=== PATIENT | male | born 1975 | race American Indian/Alaskan Native ===

== ENCOUNTER 2017-02-04 19:42 | Inpatient (IN) | payer MEDICARE ==
[2017-02-04] MEDS ORDERED: ATIVAN IM PRN (20:19)
[2017-02-04] MEDS ORDERED: HALDOL IM PRN (20:19)
--- NOTE | 2017-02-04 20:20 | Emergency Department Report ---
ED General Adult HPI - General Chief complaint: Overdose Stated complaint: POSS OD Time Seen by Provider: 02/04/17 20:10 Source: patient, family, EMS (ems notes not available at time of chart dictation), RN notes reviewed Mode of arrival: Stretcher Limitations: Altered Mental Status, Other (patient's schizophrenic, patient disorganized, patient poor historian) - History of Present Illness Initial comments: This is a 41-year-old male who was previously unknown to this provider. Has a past medical history of schizophrenia. Brought to the hospital by EMS with mother out of concern for overdose on cocaine and psychiatric medications; Prozac and/or Seroquel. Last known well time is unknown, however patient's mother reports that patient is ataxic and not walking with a steady gait. The patient cannot tell me when he was last well. The patient denies headache, neck pain, chest pain, abdominal pain, shortness of breath, homicidality and suicidality. Patient cannot describe exacerbating or relieving factors. -: unknown Consistency: constant Improves with: none Worsens with: none Associated Symptoms: confusion, weakness. denies: chest pain - Related Data Allergies Allergy/AdvReac Type Severity Reaction Status Date / Time No Known Allergies Allergy Verified 02/04/17 23:08 ED Review of Systems ROS: Stated complaint: POSS OD Other details as noted in HPI Comment: Unobtainable due to pts medical conditions Cardiovascular: denies: chest pain Gastrointestinal: denies: abdominal pain Neurological: abnormal gait Psychiatric: denies: homicidal thoughts, suicidal thoughts ED Past Medical Hx - Past Medical History Previous Medical History?: Yes Hx Psychiatric Treatment: Yes - Surgical History Past Surgical History?: No - Social History Smoking Status: Heavy Tobacco Smoker Substance Use Type: Alcohol ED Physical Exam - General Limitations: No Limitations General appearance: alert, in no apparent distress - Head Head exam: Present: atraumatic, normocephalic - Eye Eye exam: Present: normal appearance, PERRL, EOMI. Absent: nystagmus - ENT ENT exam: Present: normal exam, normal orophraynx, mucous membranes moist, normal external ear exam - Neck Neck exam: Present: normal inspection, full ROM - Respiratory Respiratory exam: Present: normal lung sounds bilaterally. Absent: respiratory distress - Cardiovascular Cardiovascular Exam: Present: regular rate, normal rhythm, normal heart sounds. Absent: systolic murmur, diastolic murmur, rubs, gallop - GI/Abdominal GI/Abdominal exam: Present: soft, normal bowel sounds. Absent: distended, tenderness, guarding, rebound, rigid, pulsatile mass - Rectal Rectal exam: Present: deferred - Extremities Exam Extremities exam: Present: normal inspection, full ROM. Absent: pedal edema, joint swelling, calf tenderness - Back Exam Back exam: Present: normal inspection, full ROM. Absent: tenderness, CVA tenderness (R), paraspinal tenderness - Neurological Exam Neurological exam: Present: alert, CN II-XII intact, abnormal gait, other ( Extraocular movements intact. Tongue midline. No facial droop. Facial sensation intact to light touch in the V1, V2, V3 distribution bilaterally. 5 and 5 strength in 4 extremities.. Sensation is intact to light touch in 4 extremities.). Absent: motor sensory deficit - Psychiatric Psychiatric exam: Present: flat affect. Absent: homicidal ideation - Skin Skin exam: Present: warm, dry, intact, normal color. Absent: rash ED Course Vital Signs 02/04/17 19:59 Temperature 98.7 F Pulse Rate 71 Respiratory 18 Rate Blood Pressure 118/61 O2 Sat by Pulse 98 Oximetry - Reevaluation(s) Reevaluation #1: 02/04/17 21:32 In addition, given that there is a concern that patient may have had a polysubstance overdose, including Seroquel, and on Prozac, he will require cardiac monitoring for at least 23 hours ED Medical Decision Making - Lab Data Result diagrams: 02/04/17 20:23 02/04/17 20:23 Vital Signs 02/04/17 19:59 Temperature 98.7 F Pulse Rate 71 Respiratory 18 Rate Blood Pressure 118/61 O2 Sat by Pulse 98 Oximetry Lab Results 02/04/17 02/04/17 02/04/17 Range/Units 20:23 20:23 20:23 WBC 8.9 (4.5-11.0) K/mm3 RBC 5.25 H (3.65-5.03) M/mm3 Hgb 15.9 H (11.8-15.2) gm/dl Hct 45.7 H (35.5-45.6) % MCV 87 (84-94) fl MCH 30 (28-32) pg MCHC 35 H (32-34) % RDW 13.0 L (13.2-15.2) % Plt Count 283 (140-440) K/mm3 Lymph % (Auto) 25.8 (13.4-35.0) % Clinch % (Auto) 6.5 (0.0-7.3) % Eos % (Auto) 4.1 (0.0-4.3) % Baso % (Auto) 0.4 (0.0-1.8) % Lymph # 2.3 (1.2-5.4) K/mm3 Clinch # 0.6 (0.0-0.8) K/mm3 Eos # 0.4 (0.0-0.4) K/mm3 Baso # 0.0 (0.0-0.1) K/mm3 Seg Neutrophils % 63.2 (40.0-70.0) % Seg Neutrophils # 5.6 (1.8-7.7) K/mm3 PT (12.2-14.9) Sec. INR (0.87-1.13) Sodium 139 (137-145) mmol/L Potassium 3.8 (3.6-5.0) mmol/L Chloride 98.1 (98-107) mmol/L Carbon Dioxide 27 (22-30) mmol/L Anion Gap 18 mmol/L BUN 15 (9-20) mg/dL Creatinine 1.1 (0.8-1.5) mg/dL Estimated GFR > 60 ml/min BUN/Creatinine Ratio 14 % Glucose 127 H (75-100) mg/dL Lactic Acid (0.7-2.0) mmol/L Calcium 10.3 H (8.4-10.2) mg/dL Magnesium (1.7-2.3) mg/dL Troponin T (0.00-0.029) ng/mL Salicylates (2.8-20.0) mg/dL Acetaminophen (10.0-30.0) ug/mL Plasma/Serum Alcohol < 0.01 (0-0.07) gm% 02/04/17 02/04/17 02/04/17 Range/Units 20:23 20:23 20:23 WBC (4.5-11.0) K/mm3 RBC (3.65-5.03) M/mm3 Hgb (11.8-15.2) gm/dl Hct (35.5-45.6) % MCV (84-94) fl MCH (28-32) pg MCHC (32-34) % RDW (13.2-15.2) % Plt Count (140-440) K/mm3 Lymph % (Auto) (13.4-35.0) % Clinch % (Auto) (0.0-7.3) % Eos % (Auto) (0.0-4.3) % Baso % (Auto) (0.0-1.8) % Lymph # (1.2-5.4) K/mm3 Clinch # (0.0-0.8) K/mm3 Eos # (0.0-0.4) K/mm3 Baso # (0.0-0.1) K/mm3 Seg Neutrophils % (40.0-70.0) % Seg Neutrophils # (1.8-7.7) K/mm3 PT (12.2-14.9) Sec. INR (0.87-1.13) Sodium (137-145) mmol/L Potassium (3.6-5.0) mmol/L Chloride (98-107) mmol/L Carbon Dioxide (22-30) mmol/L Anion Gap mmol/L BUN (9-20) mg/dL Creatinine (0.8-1.5) mg/dL Estimated GFR ml/min BUN/Creatinine Ratio % Glucose (75-100) mg/dL Lactic Acid (0.7-2.0) mmol/L Calcium (8.4-10.2) mg/dL Magnesium (1.7-2.3) mg/dL Troponin T < 0.010 (0.00-0.029) ng/mL Salicylates < 0.3 L (2.8-20.0) mg/dL Acetaminophen < 15.0 (10.0-30.0) ug/mL Plasma/Serum Alcohol (0-0.07) gm% 02/04/17 02/04/17 02/04/17 Range/Units 20:23 20:37 20:37 WBC (4.5-11.0) K/mm3 RBC (3.65-5.03) M/mm3 Hgb (11.8-15.2) gm/dl Hct (35.5-45.6) % MCV (84-94) fl MCH (28-32) pg MCHC (32-34) % RDW (13.2-15.2) % Plt Count (140-440) K/mm3 Lymph % (Auto) (13.4-35.0) % Clinch % (Auto) (0.0-7.3) % Eos % (Auto) (0.0-4.3) % Baso % (Auto) (0.0-1.8) % Lymph # (1.2-5.4) K/mm3 Clinch # (0.0-0.8) K/mm3 Eos # (0.0-0.4) K/mm3 Baso # (0.0-0.1) K/mm3 Seg Neutrophils % (40.0-70.0) % Seg Neutrophils # (1.8-7.7) K/mm3 PT 13.1 (12.2-14.9) Sec. INR 0.95 (0.87-1.13) Sodium (137-145) mmol/L Potassium (3.6-5.0) mmol/L Chloride (98-107) mmol/L Carbon Dioxide (22-30) mmol/L Anion Gap mmol/L BUN (9-20) mg/dL Creatinine (0.8-1.5) mg/dL Estimated GFR ml/min BUN/Creatinine Ratio % Glucose (75-100) mg/dL Lactic Acid 1.70 (0.7-2.0) mmol/L Calcium (8.4-10.2) mg/dL Magnesium 2.00 (1.7-2.3) mg/dL Troponin T (0.00-0.029) ng/mL Salicylates (2.8-20.0) mg/dL Acetaminophen (10.0-30.0) ug/mL Plasma/Serum Alcohol (0-0.07) gm% - EKG Data -: EKG Interpreted by Mn - EKG Data 02/04/17 21:30 Normal sinus, 74 bpm, QTC within normal limits, not morphologically consistent with ST elevation myocardial infarction - Radiology Data Radiology results: report reviewed, image reviewed CT scan of the cervical spine is negative. CT scan of the brain suggests possible subacute right-sided pontine infarct - Medical Decision Making Differential diagnosis, including but not limited to: Subacute stroke, cocaine overdose, polysubstance overdose, schizophrenia Assessment and plan: 41-year-old male with possible polysubstance overdose, and ataxia, last known well time is unknown, therefore he is not a TPA candidate. Patient placed on a 1013. Serum toxicology studies unremarkable. Creatinine kinase is pending. Noncontrast CT scan of the brain suggests possible right-sided subacute pontine infarct. Aspirin is ordered. Case was discussed with the [facility], the recommendations are as follows: Poison Control contacted. Spoke with Kathy. She states that patient needs to be monitored. No recomedations given. Patient getting ekg at this time. Case presented to the Hospital physician, Dr. Gay; he accepts the patient to the medical service. Critical care attestation.: If time is entered above; I have spent that time in minutes in the direct care of this critically ill patient, excluding procedure time. ED Disposition Clinical Impression: Overdose, Ataxia Disposition: DC-09 OP ADMIT IP TO THIS HOSP Is pt being admited?: Yes Does the pt Need Aspirin: Yes Condition: Good Referrals: PRIMARY CARE, [Primary Care Provider] - 3-5 Days
[2017-02-04 20:39] LABS: Basophils % (Auto) 0.4 % (0.0-1.8); Eosinophils % (Auto) 4.1 % (0.0-4.3); Hematocrit 45.7 % (35.5-45.6); Hemoglobin 15.9 gm/dl (11.8-15.2); Mean Corpuscular HGB Conc 35 % (32-34); Mean Corpuscular Hemoglobin 30 pg (28-32); Mean Corpuscular Volume 87 fl (84-94); Platelet Count 283 K/mm3 (140-440); Red Blood Count 5.25 M/mm3 (3.65-5.03); White Blood Count 8.9 K/mm3 (4.5-11.0)
[2017-02-04 20:55] LABS: Anion Gap 18 mmol/L; BUN/Creatinine Ratio 14; Blood Urea Nitrogen 15 mg/dL (9-20); Calcium 10.3 mg/dL (8.4-10.2); Carbon Dioxide 27 mmol/L (22-30); Chloride 98.1 mmol/L (98-107); Glucose 127 mg/dL (75-100); Potassium 3.8 mmol/L (3.6-5.0); Sodium 139 mmol/L (137-145)
--- NOTE | 2017-02-04 20:57 | Cat Scan Report ---
FINAL REPORT PROCEDURE: CT HEAD/BRAIN WO CON TECHNIQUE: Computerized tomography of the head was performed without contrast material. HISTORY: ataxia od COMPARISON: No prior studies are available for comparison. FINDINGS: Skull and scalp: Normal. Paranasal sinuses: Normal. Ventricles and subarachnoid spaces: Normal. Cerebrum: No evidence of hemorrhage, acute infarction or mass . Cerebellum and brainstem: An ill-defined hypodense a area is noted in the vivian on the right side measuring 7 millimeters x 5 millimeters. There is no evidence of any acute hemorrhage.. Vasculature: Normal. Comments: None. IMPRESSION: Small ill-defined hypodense area of vivian may represent an artifact versus a subacute or chronic infarct. MRI with diffusion-weighted imaging is recommended for further evaluation. No acute intracranial hemorrhage.
[2017-02-04 21:01] LABS: INR 0.95 (0.87-1.13)
--- NOTE | 2017-02-04 21:06 | Cat Scan Report ---
FINAL REPORT PROCEDURE: CT CERVICAL SPINE WO CON TECHNIQUE: Computerized tomography of the cervical spine was performed from the skull base to T1 without contrast material. HISTORY: ataxia od COMPARISON: No prior studies are available for comparison. FINDINGS: There is loss of cervical lordosis. Vertebral height is within normal limits. An acute fracture is not identified. C1-2: No significant abnormality. C2-3: No significant abnormality. C3-4: Mild degree broad-based disc bulging is noted without significant spinal canal or neural foraminal compromise.. C4-5: Mild degree broad-based disc bulging is noted without significant spinal canal or neural foraminal compromise.. C5-6: No significant abnormality. C6-7: No significant abnormality. C7-T1: No significant abnormality. Other: No additional findings. IMPRESSION: No significant spinal canal or neural foraminal compromise. No acute fracture. Straightening of the cervical spine is most likely secondary to spasm or positioning..
[2017-02-04] MEDS ORDERED: BABY ASPIRIN PO ONE (21:33)
[2017-02-04] MEDS ORDERED: NACL 0.9% 1000 ML 2,000 ML IV ONE (21:46)
[2017-02-04 21:59] LABS: Bilirubin,Urine NEG (Negative); Blood,Urine NEG (Negative); Ketones,Urine NEG (Negative); Leukocyte Esterase,Urine LG (Negative); Mucus,Urine 1+ /HPF; Nitrite,Urine NEG (Negative); Urobilinogen,Urine < 2.0 mg/dL (<2.0)
[2017-02-04 22:00] LABS: WBC,Urine > 182.0 /HPF (0.0-6.0)
[2017-02-04] MEDS ORDERED: SODIUM CHLORIDE FLUSH SYRINGE 10 ML IV PRN (22:32)
[2017-02-05 01:06] LABS: Creatine Kinase MB 1.1 ng/mL (0.0-4.0)
[2017-02-05 01:07] LABS: Creatine Kinase 108 units/L (55-170)
[2017-02-05 06:16] LABS: Urine Drugs of Abuse Note Disclamer
[2017-02-05 06:33] LABS: Creatine Kinase MB 1.1 ng/mL (0.0-4.0)
[2017-02-05 06:43] LABS: Creatine Kinase 107 units/L (55-170)
--- NOTE | 2017-02-05 06:52 | History and Physical Report ---
CHIEF COMPLAINT: Possible drug overdose with cocaine, Seroquel, and probably Prozac. HISTORY OF PRESENT ILLNESS: The patient is a 41-year-old male who presented to the Emergency Room with the mother being concerned that the patient overdosed on cocaine and his psychiatric meds that includes Seroquel and Prozac. The mother says she could not remember when the patient started feeling okay, but noted that the patient has been unable to ambulate because of unsteady gait and the patient stood up and fell down hitting his head on the ground. Mother and the patient could not tell when the patient felt well last, there was no history of chest pain, no history of neck pain, no history of shortness of breath, or headache. Also, there was no history of suicidal intentions or homicidal intention. PAST MEDICAL HISTORY: Pertinent for schizophrenia. PAST SURGICAL HISTORY: Unremarkable. FAMILY HISTORY: Noncontributory. SOCIAL HISTORY: The patient smokes cigarettes, drinks alcohol, uses illicit drugs notably cocaine. MEDICATIONS: The patient is on Seroquel, dose and frequency unknown. Prozac, dose and frequency unknown. ALLERGIES: There are no known drug allergies. REVIEW OF SYSTEMS: CONSTITUTIONAL: There is no fever, no chills, no diaphoresis. HEENT: There is no headache or sore throat. CARDIOVASCULAR SYSTEM: There is no chest pain or orthopnea. RESPIRATORY SYSTEM: There is no shortness of breath or cough. GASTROINTESTINAL SYSTEM: There is no nausea, no vomiting, no abdominal pain, diarrhea or constipation. NEUROLOGICAL SYSTEM: Ataxia, unsteady gait noted. No change in mental status. No dizziness, numbness. MUSCULOSKELETAL SYSTEM: There is no joint pain or swelling. DERMATOLOGICAL SYSTEM: There is no skin rash or itching. GENITOURINARY SYSTEM: There is no dysuria, hematuria, or flank pain. Rest of system review is normal. PHYSICAL EXAMINATION: GENERAL: At the time of exam, the patient was found to be alert, oriented x 3 and not in acute distress. VITAL SIGNS: Shows temperature of 98.8 degrees Fahrenheit, pulse of 78, respiration 11, blood pressure 117/63, O2 sat of 97% on room air. HEENT: Showed pupils to be equal, round, reactive to light and accommodation. Extraocular muscles are intact. NECK: Supple with no JVD or carotid bruit. CARDIOVASCULAR SYSTEM: Show first and second heart sounds with no gallops or murmurs. RESPIRATORY SYSTEM: Show good air entry on both sides of the lung with no abnormal breath sounds. GASTROINTESTINAL SYSTEM: Show abdomen to be full, soft, nontender with no organomegaly or rigidity. NEUROLOGICAL: Shows no focal deficit. MUSCULOSKELETAL SYSTEM: Show no joint swelling or tenderness. DERMATOLOGICAL SYSTEM: Show bruises on the forehead, but no other skin rash. GENITOURINARY SYSTEM: Show no costovertebral angle tenderness. PERTINENT LABORATORY DATA AND IMAGING STUDIES: The patient has CBC done with normal white count, elevated hemoglobin of 15.9 and elevated hematocrit of 45.7 with normal MCV. CBC differential was unremarkable. Coagulation studies came back unremarkable. The patient's chemistry shows slightly elevated calcium level of 10.3 and elevated glucose level of 127. Cardiac enzymes show normal CK-MB and normal total CPK with normal 2 sets of troponin. The patient's urinalysis show elevated urine wbc's of greater than 182 with large leukoesterase as well as elevated urine epithelial cells. Blood toxicology screen shows unremarkable salicylate level, unremarkable acetaminophen level, and low alcohol level of 0.01. IMAGING STUDIES: The patient has CT of the cervical spine done that shows no significant abnormality in the spinal canal or neural foramina and there is no acute fracture. Also the patient has CT of the head done that shows small ill-defined hypodense area of bones that may represent an artifact, or subacute or chronic infarct. MRI with diffuse weighted imaging is recommended for further evaluation and no acute intracranial hemorrhage was found. DIAGNOSES: 1. Subcute cerebral infarct. 2. Drug overdose with cocaine, Seroquel and possible Prozac. PLAN: The patient will be admitted to ICU because of drug overdose and will continue involuntary confinement that was already put on the patient by the Emergency Room. The patient will have complete echocardiogram done in the morning and will have MRI of the brain without contrast done this morning as well as MRI/MRA of the head without contrast. The patient will also have bilateral carotid Doppler done and DVT prophylaxis will be through sequential compressive device. The patient will continue mental health consult put in by the Emergency Room as well as continue Neurology consult with Dr. Teague that was ordered by the Emergency Room. The patient will also have physical therapy evaluation and treatment as well as occupational therapy and speech therapy evaluation and treatment this morning and will remain n.p.o. until he passes swallow test. The patient will be on oxygen by nasal cannula at 2 liter per minute and will have bilateral carotid Doppler also done this morning. The patient will have aspiration precaution and blood pressure monitoring and will have his drug reconciled later and applied accordingly. JOB# [id number] OCN/NTS MTDD
--- NOTE | 2017-02-05 11:41 | Consultation ---
History of Present Illness - Reason for Consult Consult date: 02/05/17 Possible Overdose, cardiac monitoring Requesting physician: RADHA VICTOR - History of Present Illness 41 y/o male, brought to ED by mother as she was concern for overdose. Patient UDS was positive for cocaine and methadone. Hemodynamically stable and awake enough to protect his airway. EKG done in ED, not documented by [facility] physician but QTc is ok. This am awake and alert. Past History Past Medical History: other (psych history, polysubstance abuse) Social history: prescription drug abuse Family history: no significant family history Medications and Allergies Allergies Allergy/AdvReac Type Severity Reaction Status Date / Time No Known Allergies Allergy Verified 02/04/17 23:08 Active Meds: Active Medications Haloperidol Lactate (Haldol) 5 mg IM Q6HR PRN PRN Reason: Agitation Lorazepam (Ativan) 2 mg IM Q4HR PRN PRN Reason: Agitation Sodium Chloride (Sodium Chloride Flush Syringe 10 Ml) 10 ml IV PRN PRN PRN Reason: LINE FLUSH Review of Systems All systems: negative Exam - Constitutional Vitals: Temp Pulse Resp BP Pulse Ox 98.8 F 74 13 134/80 97 02/05/17 03:45 02/05/17 10:00 02/05/17 10:00 02/05/17 06:00 02/05/17 08:12 General appearance: Present: no acute distress - EENT Eyes: Present: PERRL, EOM intact ENT: hearing intact - Neck Neck: Present: supple - Respiratory Respiratory effort: normal Respiratory: bilateral: CTA - Cardiovascular Rhythm: regular Heart Sounds: Present: S1 & S2 - Extremities Extremities: no ischemia - Abdominal General gastrointestinal: Present: soft, non-tender, normal bowel sounds Results - Labs CBC & Chem 7: 02/04/17 20:23 02/04/17 20:23 Labs: Abnormal lab results 02/04/17 02/04/17 02/04/17 Range/Units 20:23 20:23 20:23 RBC 5.25 H (3.65-5.03) M/mm3 Hgb 15.9 H (11.8-15.2) gm/dl Hct 45.7 H (35.5-45.6) % MCHC 35 H (32-34) % RDW 13.0 L (13.2-15.2) % Glucose 127 H (75-100) mg/dL Calcium 10.3 H (8.4-10.2) mg/dL Triglycerides (2-149) mg/dL Cholesterol (50-199) mg/dL Urine WBC (Auto) (0.0-6.0) /HPF U Epithel Cells (Auto) (0-13.0) /HPF Salicylates < 0.3 L (2.8-20.0) mg/dL 02/04/17 02/05/17 Range/Units 21:29 03:42 RBC (3.65-5.03) M/mm3 Hgb (11.8-15.2) gm/dl Hct (35.5-45.6) % MCHC (32-34) % RDW (13.2-15.2) % Glucose (75-100) mg/dL Calcium (8.4-10.2) mg/dL Triglycerides 177 H (2-149) mg/dL Cholesterol 203 H (50-199) mg/dL Urine WBC (Auto) > 182.0 H (0.0-6.0) /HPF U Epithel Cells (Auto) 27.0 H (0-13.0) /HPF Salicylates (2.8-20.0) mg/dL - Imaging and Cardiology CT Scan - head: report reviewed Assessment and Plan 41 y/o male with schizophrenia, admitted with possible suicide attempt and concern for overdose with methadone and cocaine 1. Cardiac arthur stable. could have gone to telemetry after EKG was done and showed no acute abnormality. Not sure why IMS felt that patient needed ICU status. 2. patient made 1013 in ED. Will need psych eval and sitter 3. No further indication for ICU, please transfer to floor. Will sign off once out of ICU.
--- NOTE | 2017-02-05 14:08 | Progress Note ---
Assessment and Plan Acute toxis encephalopathy - likely from drug overdose, now at baseline - cont to monitor Abnormal CT head for possible subacute stroke - CVa work up, start on aspirin statin - neuro consulted Drug overdose - eval for intentional overdose - psych consulted h/o paranois schizophrenia - follow psych recommendation UTI - will start on levaquin DVt Px - lovenox Brief history: Has a past medical history of schizophrenia. Brought to the hospital by EMS with mother out of concern for overdose on cocaine and psychiatric medications; Prozac and/or Seroquel Radiological test: CT head Cervical spine CT Carotid doppler Hospitalist Physical exam: GENERAL: well-developed and well-nourished AAM lying on bed appeared to be in no discomfort. HEENT: Normocephalic. Atraumatic. No conjunctival congestion or icterus. Patient has moist mucous membranes. NECK: Supple. Trachea midline. CHEST/LUNGS: Clear to auscultated bilaterally, breathing nonlabored. No wheezes crackles or rhonchi. HEART/CARDIOVASCULAR: Regular in rate and rhythm. S1 and S2 positive. ABDOMEN: Abdomen is soft, nontender. Patient has normal bowel sounds. SKIN: There is no rash. Warm and dry. NEURO: No focal motor deficit. Follows command. MUSCULOSKELETAL: No joint effusion or tenderness. EXTRIMITY: No edema, no cyanosis or clubbing. PSYCH: Cooperative. Subjective Date of service: 02/05/17 Interval history: pt sen and examined denies any SI he states that he wanted to have good sleep and took seroquel and haldol together and passed out Objective - Constitutional Vitals: Vital Signs - 12hr 02/05/17 02/05/17 02/05/17 02:10 02:15 02:20 Temperature Pulse Rate 78 78 Respiratory 13 11 L Rate Respiratory Rate [Left Ankle] Blood Pressure 129/74 129/74 O2 Sat by Pulse 98 97 97 Oximetry 02/05/17 02/05/17 02/05/17 02:30 02:40 02:50 Temperature Pulse Rate 86 86 82 Respiratory 13 18 13 Rate Respiratory Rate [Left Ankle] Blood Pressure 129/74 129/74 129/74 O2 Sat by Pulse 96 96 96 Oximetry 02/05/17 02/05/17 02/05/17 03:00 03:10 03:15 Temperature Pulse Rate 82 82 82 Respiratory 12 12 Rate Respiratory Rate [Left Ankle] Blood Pressure 117/63 117/63 O2 Sat by Pulse 94 95 Oximetry 02/05/17 02/05/17 02/05/17 03:20 03:30 03:40 Temperature Pulse Rate 79 77 78 Respiratory 12 12 11 L Rate Respiratory Rate [Left Ankle] Blood Pressure 117/63 117/63 117/63 O2 Sat by Pulse 96 96 97 Oximetry 02/05/17 02/05/17 02/05/17 03:45 03:50 04:00 Temperature 98.8 F Pulse Rate 76 71 Respiratory 10 L 13 Rate Respiratory Rate [Left Ankle] Blood Pressure 117/63 119/70 O2 Sat by Pulse 98 96 Oximetry 02/05/17 02/05/17 02/05/17 04:10 04:20 04:30 Temperature Pulse Rate 73 78 76 Respiratory 12 12 11 L Rate Respiratory Rate [Left Ankle] Blood Pressure 119/70 119/70 119/70 O2 Sat by Pulse 97 97 96 Oximetry 02/05/17 02/05/17 02/05/17 04:40 04:50 05:00 Temperature Pulse Rate 80 77 74 Respiratory 14 12 12 Rate Respiratory Rate [Left Ankle] Blood Pressure 119/70 119/70 120/67 O2 Sat by Pulse 97 97 95 Oximetry 02/05/17 02/05/17 02/05/17 05:10 05:20 05:30 Temperature Pulse Rate 89 76 75 Respiratory 16 13 12 Rate Respiratory Rate [Left Ankle] Blood Pressure 120/67 120/67 120/67 O2 Sat by Pulse 98 97 96 Oximetry 02/05/17 02/05/17 02/05/17 05:40 05:50 06:00 Temperature Pulse Rate 75 77 74 Respiratory 14 14 13 Rate Respiratory Rate [Left Ankle] Blood Pressure 120/67 120/67 134/80 O2 Sat by Pulse 98 95 93 Oximetry 02/05/17 02/05/17 02/05/17 08:00 08:12 10:00 Temperature Pulse Rate 74 Respiratory Rate Respiratory 13 Rate [Left Ankle] Blood Pressure O2 Sat by Pulse 97 97 Oximetry - Labs CBC & Chem 7: 02/04/17 20:23 02/04/17 20:23 Labs: Abnormal lab results 02/04/17 02/04/17 02/04/17 Range/Units 20:23 20:23 20:23 RBC 5.25 H (3.65-5.03) M/mm3 Hgb 15.9 H (11.8-15.2) gm/dl Hct 45.7 H (35.5-45.6) % MCHC 35 H (32-34) % RDW 13.0 L (13.2-15.2) % Glucose 127 H (75-100) mg/dL POC Glucose (70-105) Calcium 10.3 H (8.4-10.2) mg/dL Triglycerides (2-149) mg/dL Cholesterol (50-199) mg/dL Urine WBC (Auto) (0.0-6.0) /HPF U Epithel Cells (Auto) (0-13.0) /HPF Salicylates < 0.3 L (2.8-20.0) mg/dL 02/04/17 02/05/17 02/05/17 Range/Units 21:29 03:42 11:40 RBC (3.65-5.03) M/mm3 Hgb (11.8-15.2) gm/dl Hct (35.5-45.6) % MCHC (32-34) % RDW (13.2-15.2) % Glucose (75-100) mg/dL POC Glucose 119 H (70-105) Calcium (8.4-10.2) mg/dL Triglycerides 177 H (2-149) mg/dL Cholesterol 203 H (50-199) mg/dL Urine WBC (Auto) > 182.0 H (0.0-6.0) /HPF U Epithel Cells (Auto) 27.0 H (0-13.0) /HPF Salicylates (2.8-20.0) mg/dL
--- NOTE | 2017-02-05 16:17 | Consultation ---
History of Present Illness Consult date: 02/05/17 History of present illness: tarun has hx of paranoid schizophrenia PMH of being treated at [facility] and was given geodon and seroquel he mixed it with crack cocaine and passed out suspect seizure plan EEG neuro stable at present Thanks will follow Past History Past Medical History: other (psych history, polysubstance abuse) Social history: prescription drug abuse Family history: no significant family history Medications and Allergies Allergies Allergy/AdvReac Type Severity Reaction Status Date / Time No Known Allergies Allergy Verified 02/04/17 23:08 Home Medications Medication Instructions Recorded Confirmed Last Taken Type FLUoxetine 40 mg PO DAILY 02/05/17 02/05/17 Unknown History Haloperidol 1 tab PO QHS 02/05/17 02/05/17 Unknown History Pantoprazole 40 mg PO DAILY 02/05/17 02/05/17 Unknown History SEROquel 600 mg PO QHS 02/05/17 02/05/17 02/04/17 History 800 VENTOLIN Inhaler(NF) 02/05/17 Unknown History Active Meds: Active Medications Aspirin (Halfprin Ec) 81 mg PO QDAY AJAY Atorvastatin Calcium (Lipitor) 80 mg PO QHS AJAY Enoxaparin Sodium (Lovenox) 40 mg SUB-Q QDAY@2200 AJAY Haloperidol Lactate (Haldol) 5 mg IM Q6HR PRN PRN Reason: Agitation Lorazepam (Ativan) 2 mg IM Q4HR PRN PRN Reason: Agitation Sodium Chloride (Sodium Chloride Flush Syringe 10 Ml) 10 ml IV PRN PRN PRN Reason: LINE FLUSH Physical Examination - Vital Signs Vital Signs: Vital Signs Resp 13 02/04/17 19:53 Results - Laboratory Findings CBC and BMP: 02/04/17 20:23 02/04/17 20:23 Abnormal Lab Findings: Abnormal Labs 02/04/17 02/04/17 02/04/17 20:23 20:23 20:23 RBC 5.25 H Hgb 15.9 H Hct 45.7 H MCHC 35 H RDW 13.0 L Glucose 127 H POC Glucose Calcium 10.3 H Triglycerides Cholesterol Urine WBC (Auto) U Epithel Cells (Auto) Salicylates < 0.3 L 02/04/17 02/05/17 02/05/17 21:29 03:42 11:40 RBC Hgb Hct MCHC RDW Glucose POC Glucose 119 H Calcium Triglycerides 177 H Cholesterol 203 H Urine WBC (Auto) > 182.0 H U Epithel Cells (Auto) 27.0 H Salicylates
--- NOTE | 2017-02-05 17:58 | Consultation ---
History of Present Illness - Reason for Consult Consult date: 02/05/17 Reason for consult: psychiatric evaluation - Chief Complaint Chief complaint: "I took seroquel and haldol together and passed out." Mr. Valente is a 41 year old AAM seen for psychiatric evaluation on the medication floor. He reports using cocaine for 2 days, staying awake, not eating or drinking anything, and then taking seroquel 800mg and haldol 10mg. He states after he took the medication he must have passed out. His mother found him and called 911. He reports ongoing cocaine use, at least 1 x weekly if not more. He reports alcohol use in "small" amounts. His UDS is positive for methadone and cocaine. CK is 107. Head CT showed subacute or chronic infarct. He has a history of schizophrenia, paranoid type. He adamantly denies suicide attempt. He states he did not overdose. He thinks his episode was because of the combination of the conditions described. He reports using cocaine for 2 days, staying awake, not eating or drinking anything , and then taking seroquel 800mg and haldol 10mg. He reports a good appetite now. He states he wants to continue with his mental health treatment, of Seroquel 800mg hs, haldol at a reduced dose of 5mg, and prozac 40mg daily. Psychotic symptoms are controlled by medications. He has chronic paranoia and auditory hallucinations worsen with cocaine use. He denies command hallucinations. No homicidal ideation. Medications and Allergies Allergies Allergy/AdvReac Type Severity Reaction Status Date / Time No Known Allergies Allergy Verified 02/04/17 23:08 Home Medications Medication Instructions Recorded Confirmed Last Taken Type FLUoxetine 40 mg PO DAILY 02/05/17 02/05/17 Unknown History Haloperidol 1 tab PO QHS 02/05/17 02/05/17 Unknown History Pantoprazole 40 mg PO DAILY 02/05/17 02/05/17 Unknown History SEROquel 600 mg PO QHS 02/05/17 02/05/17 02/04/17 History 800 VENTOLIN Inhaler(NF) 02/05/17 Unknown History Active Meds: Active Medications Aspirin (Halfprin Ec) 81 mg PO QDAY AJAY Atorvastatin Calcium (Lipitor) 80 mg PO QHS AJAY Enoxaparin Sodium (Lovenox) 40 mg SUB-Q QDAY@2200 AJAY Haloperidol Lactate (Haldol) 5 mg IM Q6HR PRN PRN Reason: Agitation Lorazepam (Ativan) 2 mg IM Q4HR PRN PRN Reason: Agitation Sodium Chloride (Sodium Chloride Flush Syringe 10 Ml) 10 ml IV PRN PRN PRN Reason: LINE FLUSH Past psychiatric history - Past Medical History Past Medical History: other - past Psychiatric treatment and history Psych: Schizophrenia - Social History Social history: lives with family (lives with mother), other (cocaine use) Mental Status Exam - Vital signs Last Vital Signs Temp 98.5 F 02/05/17 15:17 Pulse 75 02/05/17 15:17 Resp 18 02/05/17 15:17 BP 106/69 02/05/17 15:17 Pulse Ox 96 02/05/17 15:17 - Exam Orientation: time, place, person Affect: normal Mood: appropriate, calm Thought content: paranoia (chronic) Thought Process: Intact Perceptions: none Speech: normal rate and pattern Concentration: focused Motor activity: normal Level of consciousness: alert Memory: Intact Sleep Symptoms: Difficulty Falling Asleep Appetite: increased Interaction: cooperative Results Result Diagrams: 02/04/17 20:23 02/04/17 20:23 Abnormal lab results 02/04/17 02/04/17 02/04/17 Range/Units 20:23 20:23 20:23 RBC 5.25 H (3.65-5.03) M/mm3 Hgb 15.9 H (11.8-15.2) gm/dl Hct 45.7 H (35.5-45.6) % MCHC 35 H (32-34) % RDW 13.0 L (13.2-15.2) % Glucose 127 H (75-100) mg/dL POC Glucose (70-105) Calcium 10.3 H (8.4-10.2) mg/dL Triglycerides (2-149) mg/dL Cholesterol (50-199) mg/dL Urine WBC (Auto) (0.0-6.0) /HPF U Epithel Cells (Auto) (0-13.0) /HPF Salicylates < 0.3 L (2.8-20.0) mg/dL 02/04/17 02/05/17 02/05/17 Range/Units 21:29 03:42 11:40 RBC (3.65-5.03) M/mm3 Hgb (11.8-15.2) gm/dl Hct (35.5-45.6) % MCHC (32-34) % RDW (13.2-15.2) % Glucose (75-100) mg/dL POC Glucose 119 H (70-105) Calcium (8.4-10.2) mg/dL Triglycerides 177 H (2-149) mg/dL Cholesterol 203 H (50-199) mg/dL Urine WBC (Auto) > 182.0 H (0.0-6.0) /HPF U Epithel Cells (Auto) 27.0 H (0-13.0) /HPF Salicylates (2.8-20.0) mg/dL All other labs normal. Assessment and Plan Assessment and plan: Impression: He presented to the hospital with altered mental status. Cocaine overdose, seroquel & haldol ingestion. schizophrenia, paranoia type by history. r/o intentional overdose ddx: substance induced psychotic disorder. Neurology involved. Recommendation: Hold psychotropic medications at this time. Assess again in 24 hours to determine need for involuntary hold and to evaluate psychotropic medications.
[2017-02-05] MEDS: HALFPRIN EC PO SCH (18:00)
[2017-02-05] MEDS ORDERED: LOVENOX SUB-Q SCH (22:00)
[2017-02-06] MEDS: HALFPRIN EC PO SCH (09:55)
[2017-02-06] MEDS ORDERED: LEVAQUIN PO SCH (10:00)
--- NOTE | 2017-02-06 13:43 | Progress Note ---
Subjective - Reason for Consult Consult date: 02/06/17 Reason for consult: Psychiatry Follow-up - Chief Complaint Chief complaint: "Drug use is my issue" Mr. Valente is a 41 year old AAM seen for psychiatric evaluation on the medication floor. Today patient is calm and cooperative during the assessment. Per collateral from his mother Celsa Valente who was at the bedside, stated that her son has always had an issue with cocaine use. She stated that he was "clean " for 2 years and had no problems. She stated once he started back using cocaine , the hallucinations/paranoia started again. She denies that her son was trying to kill himself prior to his admission to the hospital. She denies a prior suicidal attempt by her son. The patient confirmed being "fine" when he wasn't using cocaine for 2 years. He denied hallucinations and paranoia during that time. He denies SI/HI's and AVH's. He stated that he took a regular dose of his medications (2 Seroquel pills and 1 Haldol pill) prior to being admitted to [facility]. He stated that he slept "well" last night. He stated that he will follow- up with his outpatient psychiatrist and get an second opinion about his mental health dx. Mental Status Exam - Vital signs Last Vital Signs Temp 97.6 F 02/06/17 09:58 Pulse 89 02/06/17 10:00 Resp 18 02/06/17 10:00 BP 153/94 02/06/17 09:58 Pulse Ox 97 02/06/17 09:58 - Exam Narrative exam: MSE: Appearance: calm, cooperative Behavior: regular eye contact Speech: regular rate and tone Mood: "well" Affect: congruent to mood Thought Process: intact Thought Content: denies SI/HI's and AVH's Motor Activity: sitting up in bed Cognition: A/O x3 Insight: fair Judgment: fair Assessment and Plan Impression: Schizophrenia, paranoia type by history. Substance Use DO (cocaine) . Today patient is calm and cooperative during the assessment. Unintentional overdose. Neuro following patient - Abnormal CT of the head. DDx: Substance Induced Psychosis Recommendation/Plan: Rescind 1013. Recommend patient follow up with his outpatient psychiatrist to be reevaluated. Patient was given outpatient psy/ rehab services for [facility]. Discussed the importance to abstain from recreational drug use with patient.
--- NOTE | 2017-02-06 15:25 | Discharge Summary ---
Providers - Providers Date of Admission: 02/04/17 22:31 Date of discharge: 02/06/17 Attending physician: BRODY GAVIN 02/04/17 20:19 Consult to Mental Health [CONS] Urgent Reason For Exam: psych Place consult to:: mechanical service representative front services agent Notified:: awaiting call back 02/04/17 21:29 Consult to Physician [CONS] Urgent Consulting Provider: MARKIE MONTANA Reason For Exam: ataxia Notified:: awaiting call back 02/04/17 22:44 Occupational Therapy Evaluate and Treat [CONS] Routine Comment: Reason For Exam: Neuro deficits Physical Therapy Evaluation and Treat [CONS] Routine Comment: Reason For Exam: Neuro deficits 02/04/17 23:15 Consult to Physician [CONS] Routine Consulting Provider: HEIDI BENDER Reason For Exam: icu admission Place consult to:: Dr. Bender Notified:: Answering Service Phone number called:: [phone] Was contact made?: Yes If yes, spoke with:: Dr. Bender Time called:: 23:22 02/05/17 06:46 Speech Therapy Evaluation and Treat [CONS] Routine Reason For Exam: swallow eval 02/05/17 06:52 Physical Therapy Evaluation and Treat [CONS] Routine Comment: Reason For Exam: ATAXIA DUE TO CEREBRAL INFARCT Primary care physician: WET END SUPERVISOR Hospitalization Condition: Good Hospital course: This is a 41 y/o male with history of schizophrenia Brought to the hospital by EMS with mother out of concern for overdose on cocaine and psychiatric medications; haldol and Seroquel. He denied SI/HI's and AVH's. He stated that he took a regular dose of his medications (2 Seroquel pills and 1 Haldol pill) prior to being admitted to [facility]. He stated that he has been sleeping "well" at night in the hospital. He stated that he will follow-up with his outpatient psychiatrist and get an second opinion about his mental health dx. Psych was consulted and recommended outpatient follow up. His CT head in the ER had abnormal findings and neurology was consulted. CVA work up was done and no ischemic infract noted in the MRI. He was discharged home instable condition. Discharge diagnosis and management: Acute toxis encephalopathy - likely from drug overdose, now at baseline - cont to monitor Abnormal CT head for possible subacute stroke - had CVa work up, started on aspirin statin - neuro consulted, but mostly it was an artifact Drug overdose - eval for intentional overdose - psych consulted and recommended outpt follow up h/o paranois schizophrenia - cont home meds except haldol at bedtime, further Mx outpt UTI - treated with levaquin DVt Px - lovenox Radiological test: CT head Cervical spine CT Carotid doppler MRI brain 2d echo Hospitalist Physical exam: GENERAL: well-developed and well-nourished AAM lying on bed appeared to be in no discomfort. HEENT: Normocephalic. Atraumatic. No conjunctival congestion or icterus. Patient has moist mucous membranes. NECK: Supple. Trachea midline. CHEST/LUNGS: Clear to auscultated bilaterally, breathing nonlabored. No wheezes crackles or rhonchi. HEART/CARDIOVASCULAR: Regular in rate and rhythm. S1 and S2 positive. ABDOMEN: Abdomen is soft, nontender. Patient has normal bowel sounds. SKIN: There is no rash. Warm and dry. NEURO: No focal motor deficit. Follows command. MUSCULOSKELETAL: No joint effusion or tenderness. EXTRIMITY: No edema, no cyanosis or clubbing. PSYCH: Cooperative. Disposition: DC-01 TO HOME OR SELFCARE Time spent for discharge: 32 minutes Core Measure Documentation - Palliative Care Palliative Care/ Comfort Measures: Not Applicable - Core Measures Any of the following diagnoses?: none Exam - Constitutional Vitals: Temp Pulse Resp BP Pulse Ox 97.6 F 89 18 153/94 97 02/06/17 09:58 02/06/17 10:00 02/06/17 10:00 02/06/17 09:58 02/06/17 09:58 Plan Activity: advance as tolerated Weight Bearing Status: Weight Bear as Tolerated Diet: low fat, low salt Follow up with: PRIMARY CARE, [Primary Care Provider] - 3-5 Days Prescriptions: Levofloxacin [Levaquin TAB] 500 mg PO Q24HR #3 tablet
[2017-02-06 16:20] VITALS: BP 129/83
--- NOTE | 2017-02-07 07:39 | Magnetic Resonance Report ---
MRI OF THE BRAIN WITHOUT CONTRAST: HISTORY: CVA PROCEDURE: Multiplanar, multisequence MR imaging of the brain without IV contrast was performed. FINDINGS: CT head without contrast performed 02/04/17 was reviewed. The brain parenchyma signal intensity and its jaramillo white interface are within normal limits on all sequences. No evidence for acute ischemia, hemorrhage or mass. No chronic infarct or extra-axial fluid collection. The midline structures are central. The basal cisterns are patent. Normal ventricular size. The orbital cavities and sella turcica demonstrate no abnormality. The visualized paranasal sinuses and mastoid air cells are well aerated. IMPRESSION: Unremarkable non-enhanced MRI of the brain.
== END 2017-02-06 20:21 | disposition home or self-care (01) | DRG 917 ==
LOC: ED 19:42 → CC1 22:31 → 4A 02-05 15:31
PROVIDERS: ADMIT Internal Medicine; ATTEND Internal Medicine
DX: T40.5X2A Poisoning by cocaine, intentional self-harm, initial encounter (principal); G92 Toxic encephalopathy; I63.9 Cerebral infarction, unspecified; N39.0 Urinary tract infection, site not specified; F20.0 Paranoid schizophrenia; R27.0 Ataxia, unspecified; F17.200 Nicotine dependence, unspecified, uncomplicated; T43.222A Poisoning by selective serotonin reuptake inhibitors, intentional self-harm, initial encounter; T43.592A Poisoning by other antipsychotics and neuroleptics, intentional self-harm, initial encounter; Y92.89 Other specified places as the place of occurrence of the external cause
CPT/HCPCS: 36415; 70450; 70551; 72125; 80048; 80061; 80307; 80320; 81001; 82140; 82550; 82553; 82962; 83735; 84484; 85025; 85610; 87086; 93005; 93010; 93306; 93880; 96360; 99406; A9270-GY; G0480; G8996-GN; G8997-GN; J1630; J1650; J2060; J7030

== ENCOUNTER 2017-07-26 11:23 | Emergency (ER) | payer MEDICARE | END 2017-07-26 12:00 | disposition left against medical advice (07) | LOC: ED 11:23 | DX: F99 Mental disorder, not otherwise specified (principal); Z53.21 Procedure and treatment not carried out due to patient leaving prior to being seen by health care provider ==

== ENCOUNTER 2021-07-02 20:16 | Emergency (ER) | payer MEDICARE ==
--- NOTE | 2021-07-02 20:27 | Emergency Department Report ---
ED CPR HPI - General Stated Complaint: CARDIAC ARREST Time Seen by Provider: 07/02/21 20:16 - History of Present Illness Initial Comments: 45-year-old male with a past medical history of schizophrenia and cocaine abuse presents to the hospital in cardiopulmonary arrest. First responders found the patient with decreased mental status breathing at a rate of 6/min and had a witnessed arrest. ALS unit reports a blue substance in the airway while intubating with a Berhane airway. Patient was in asystole and received first dose of epinephrine at 7:42 PM. He received a total of epinephrine x4, Narcan, and sodium bicarb. Last epinephrine administered at 8:04p. Patient remained in asystole despite resuscitation efforts. Glucose reported as 97. Resuscitation efforts continued upon arrival - Related Data Home Medications Medication Instructions Recorded Confirmed Last Taken ALBUTEROL Inhaler(NF) [VENTOLIN 1 puff IH BID 02/05/17 02/06/17 3 Months Ago Inhaler(NF)] ~11/07/16 FLUoxetine HCL [Fluoxetine HCl] 40 mg PO DAILY 02/05/17 02/06/17 1 Week Ago ~01/30/17 Pantoprazole [Protonix TAB] 40 mg PO QDAY 02/05/17 02/05/17 Unknown Quetiapine Fumarate [SEROquel] 300 mg PO QHS 02/05/17 02/06/17 02/04/17 800 Previous Rx's Medication Instructions Recorded Last Taken Type levoFLOXacin [Levaquin TAB] 500 mg PO Q24HR #3 tablet 02/06/17 Unknown Rx Allergies Allergy/AdvReac Type Severity Reaction Status Date / Time No Known Allergies Allergy Verified 02/04/17 23:08 ED Review of Systems ROS: Stated complaint: CARDIAC ARREST Other details as noted in HPI Comment: All other systems reviewed and negative ED Past Medical Hx - Past Medical History Hx Congestive Heart Failure: No Hx Diabetes: No Hx Psychiatric Treatment: Yes Hx Asthma: No Hx COPD: No - Social History Smoking Status: Heavy Tobacco Smoker - Medications Home Medications: Home Medications Medication Instructions Recorded Confirmed Last Taken Type ALBUTEROL Inhaler(NF) [VENTOLIN 1 puff IH BID 02/05/17 02/06/17 3 Months Ago History Inhaler(NF)] ~11/07/16 FLUoxetine HCL [Fluoxetine HCl] 40 mg PO DAILY 02/05/17 02/06/17 1 Week Ago History ~01/30/17 Pantoprazole [Protonix TAB] 40 mg PO QDAY 02/05/17 02/05/17 Unknown History Quetiapine Fumarate [SEROquel] 300 mg PO QHS 02/05/17 02/06/17 02/04/17 History 800 levoFLOXacin [Levaquin TAB] 500 mg PO Q24HR #3 tablet 02/06/17 Unknown Rx ED Physical Exam - Other Other exam information: General: Unresponsive Head: Atraumatic Eyes: Pupils fixed and ENT: Orally intubated with Berhane airway with blue powdery substance on the side of mouth Neck: Normal appearance Chest: No spontaneous respirations, breath sounds with bagging CV: Pulseless Abdomen: Nondistended Back: Normal inspection Extremity: No spontaneous movement Neuro: GCS equals 3 Psych: Unresponsive Skin: Warm to touch ED Medical Decision Making - Medical Decision Making CPR continued upon ED arrival and additional epinephrine administered. Patient remained in asystole despite prolonged resuscitation efforts without any change in rhythm. Time of 20:17 mother and family informed of patients . Critical Care Time: No Critical care attestation.: If time is entered above; I have spent that time in minutes in the direct care of this critically ill patient, excluding procedure time. ED Disposition Clinical Impression: Cardiopulmonary arrest Disposition: 20 Is pt being admited?: No Condition: Stable Time of Disposition: 21:19
== END 2021-07-03 16:45 ==
LOC: ED 20:16
DX: I46.9 Cardiac arrest, cause unspecified (principal)
CPT/HCPCS: 92950; 99285